=== PATIENT | male | born 1980 | race Caucasian/White ===

== ENCOUNTER 2021-06-11 08:00 | Outpatient (CLI) | payer OTHER ==
--- NOTE | 2021-06-11 12:37 | XRAY Report ---
PROCEDURE: Ankle 3 View RT INDICATIONS: ANKLE PAIN, RIGHT TECHNIQUE: 3 views of the ankle were acquired. COMPARISON: None FINDINGS: Bones: No dislocations. Ankle mortise is normally aligned. No suspicious bony lesions. There is a diagonal fracture best seen on the lateral view, involving the distal diaphysis extending inferiorly across the ankle joint level, with fine bone detail obscured by overlying cast material. Soft tissues: No tibiotalar joint effusion. Achilles tendon appears normal. IMPRESSION: Diagonal minimally displaced fibular fracture extending from the distal diaphysis into t he ankle joint level of the lateral malleolus. Minimal malalignment. Reviewed by: Nate Lyons MD on 06/11/2021 12:36 PM PDT Approved by: Nate Lyons MD on 06/11/2021 12:36 PM PDT Station ID: [id number]
== END 2021-06-11 23:59 | disposition home or self-care (01) ==
LOC: DI.N 08:00
PROVIDERS: ATTEND Orthopaedic Surgery
DX: S82.831A Other fracture of upper and lower end of right fibula, initial encounter for closed fracture (principal)

== ENCOUNTER 2021-06-18 08:00 | Outpatient (CLI) | payer OTHER ==
--- NOTE | 2021-06-18 11:25 | XRAY Report ---
PROCEDURE: Ankle 3 View RT INDICATIONS: NONDISPLACED BIMALLEOLAR FX OF R LOWER LEG TECHNIQUE: 3 weightbearing views of the ankle were acquired. COMPARISON: Ankle radiographs 06/11/2021 FINDINGS: Bones: Minimally displaced oblique fracture of the distal fibula and small minimally displaced fractu re at the tip of the medial malleolus do not appear significant changed when compared to the radiogra phs from 06/11/2021. The alignment is unchanged. Ankle mortise is normally aligned. No suspicious bon y lesions. Soft tissues: Soft tissue edema is seen surrounding the ankle. IMPRESSION: Minimally displaced fractures of the distal fibula and the medial malleolus tip redemons trated with unchanged alignment. Reviewed by: Mayito Luo MD on 06/18/2021 11:24 AM PDT Approved by: Mayito Luo MD on 06/18/2021 11:24 AM PDT Station ID: [id number]
== END 2021-06-18 23:59 | disposition home or self-care (01) ==
LOC: DI.N 08:00
PROVIDERS: ATTEND Orthopaedic Surgery
DX: S82.844A Nondisplaced bimalleolar fracture of right lower leg, initial encounter for closed fracture (principal)

== ENCOUNTER 2021-06-29 08:00 | Outpatient (CLI) | payer OTHER ==
--- NOTE | 2021-06-29 11:47 | XRAY Report ---
PROCEDURE: Ankle 3 View RT INDICATIONS: NONDISPLACED BIMALLEOLAR FX OF R LOWER LEG TECHNIQUE: 3 views of the ankle were acquired. COMPARISON: and 06/11/2021. FINDINGS: Bones: Nondisplaced fracture of the distal fibula is stable in appearance compared 06/18/2021. Minimall y displaced fracture of the tip of the medial malleolus is stable compared 06/18/2021. Ankle mortise is normally aligned. No suspicious bony lesions. Soft tissues: No tibiotalar joint effusion. Achilles tendon appears normal. IMPRESSION: Distal fibula and medial malleolus tip fracture stable compared to 06/18/2021. Reviewed by: Gege Rehman MD, PhD on 06/29/2021 11:46 AM PDT Approved by: Gege Rehman MD, PhD on 06/29/2021 11:46 AM PDT Station ID: [id number]
== END 2021-06-29 23:59 | disposition home or self-care (01) ==
LOC: DI.N 08:00
PROVIDERS: ATTEND Orthopaedic Surgery
DX: S82.844A Nondisplaced bimalleolar fracture of right lower leg, initial encounter for closed fracture (principal)

== ENCOUNTER 2021-07-28 09:45 | Outpatient (CLI) | payer OTHER ==
--- NOTE | 2021-07-28 11:31 | XRAY Report ---
PROCEDURE: Ankle 3 View RT INDICATIONS: NONDISPLACED BIMALLEOLAR FX OF R LOWER LEG TECHNIQUE: 3 views of the ankle were acquired. COMPARISON: X-ray ankle 06/29/2021 FINDINGS: Bones: There is stable alignment of previously identified nondisplaced distal fibular fracture. Simil ar appearance is also noted within the previously noted medial malleoli or tip fracture. Minimal inte rval healing is noted. Ankle mortise is normally aligned. No suspicious bony lesions. Soft tissues: No tibiotalar joint effusion. Achilles tendon appears normal. IMPRESSION: Stable alignment of previously identified distal fibular as well as medial malleoli or f ractures. Reviewed by: Hilary Olmedo MD on 07/28/2021 11:30 AM PDT Approved by: Hilary Olmedo MD on 07/28/2021 11:30 AM PDT Station ID: [id number]
== END 2021-07-28 23:59 | disposition home or self-care (01) ==
LOC: DI.N 09:45
PROVIDERS: ATTEND Orthopaedic Surgery
DX: S82.844D Nondisplaced bimalleolar fracture of right lower leg, subsequent encounter for closed fracture with routine healing (principal)

== ENCOUNTER 2022-03-11 20:15 | Outpatient (CLI) | payer OTHER | END 2022-03-11 20:16 | disposition critical access hospital (66) | LOC: EMS 20:15 | DX: M54.50 Low back pain, unspecified (principal); G89.29 Other chronic pain; M51.9 Unspecified thoracic, thoracolumbar and lumbosacral intervertebral disc disorder | CPT/HCPCS: A0425; A0429 ==

== ENCOUNTER 2022-03-11 20:33 | Emergency (ER) | payer OTHER ==
[2022-03-11] MEDS ORDERED: KETOROLAC 15 MG/ML VIAL IVP STA ×2 (20:48→23:01)
[2022-03-11] MEDS ORDERED: SODIUM CHLORIDE 0.9% 1,000 ML IV STA ×2 (20:48→23:01)
[2022-03-11 21:08] LABS: BASOPHILS % (AUTO) 0.5 %; EOSINOPHILS # (AUTO) 0.2 10^3/uL (0.0-0.7); EOSINOPHILS % (AUTO) 2.8 %; HCT - HEMATOCRIT 37.3 % (42.0-52.0); LYMPHOCYTES # (AUTO) 0.9 10^3/uL (1.5-3.5); LYMPHOCYTES % (AUTO) 10.4 %; MEAN CORPUSCULAR HEMOGLOBIN 28.3 pg (27.0-31.0); MEAN CORPUSCULAR HGB CONC 34.9 g/dL (32.0-36.0); MEAN CORPUSCULAR VOLUME 81.3 fL (80.0-94.0); MEAN PLATELET VOLUME 10.3 fL (7.4-11.4); MONOCYTES # (AUTO) 1.2 10^3/uL (0.0-1.0); MONOCYTES % (AUTO) 14.7 %; NEUTROPHILS # (AUTO) 5.8 10^3/uL (1.5-6.6); NEUTROPHILS % (AUTO) 70.9 %; PLT - PLATELET COUNT 183 10^3/uL (130-450); RED BLOOD COUNT 4.59 10^6/uL (4.70-6.10); RED CELL DISTRIBUTION WIDTH 13.5 % (12.0-15.0); WHITE BLOOD COUNT 8.2 x10^3/uL (4.8-10.8)
--- OUTSIDE RECORDS SUMMARY | 2022-03-11 21:16 | EXTERNAL MEDICAL SUMMARY RPT | Continuity of Care Document ---
:1980 Author Organization [facility] [address] [place] [address] Phone Allergies No information. Encounters No information. Medications No information. Problems date description facility [id number] Low back pain, unspecified [facility] Results No information.
[2022-03-11 21:23] LABS: ALBUMIN 4.4 g/dL (3.2-5.5); ALBUMIN/GLOBULIN RATIO 1.6 (1.0-2.2); BILIRUBIN,TOTAL 0.4 mg/dL (0.2-1.0); CALCIUM 9.2 mg/dL (8.5-10.3); MAGNESIUM 1.7 mg/dL (1.7-2.8); POTASSIUM 3.7 mmol/L (3.5-5.0); TOTAL PROTEIN 7.2 g/dL (6.7-8.2)
--- NOTE | 2022-03-11 21:29 | XRAY Report ---
PROCEDURE: Chest 1 View X-Ray INDICATIONS: Weakness TECHNIQUE: One view of the chest was acquired. COMPARISON: None FINDINGS: Surgical changes and devices: None. Lungs and pleura: No pleural effusions or pneumothorax. Cephalization of pulmonary vessels and incre ased interstitial markings in both lungs. No consolidation. Mediastinum: Mediastinal contours appear normal. Heart size is normal. Bones and chest wall: No suspicious bony lesions. Overlying soft tissues appear unremarkable. IMPRESSION: Cephalization of pulmonary vessels and increased interstitial markings which may be due to technique although mild pulmonary edema could cause a similar appearance. Reviewed by: Ricci Lee MD on 03/11/2022 9:28 PM PDT Approved by: Ricci Lee MD on 03/11/2022 9:28 PM PDT Station ID: [id number]
[2022-03-11] MEDS ORDERED: IOPAMIDOL-300 100 ML VIAL ONE (22:02)
[2022-03-11] MEDS ORDERED: MORPHINE 2 MG/ML CARPUJECT IVP STA (22:19)
[2022-03-11] MEDS ORDERED: IOPAMIDOL-300 100 ML VIAL IVP ONE (22:28)
--- NOTE | 2022-03-11 22:53 | CT Report ---
PROCEDURE: Abdomen/Pelvis W INDICATIONS: lower abd pain/diarrhea CONTRAST: IV CONTRAST: Isovue 300 ml: 100 PO CONTRAST: *NO PO CONTRAST TECHNIQUE: After the administration of IV contrast, 5 mm thick sections acquired from the diaphragms to the symp hysis. 5 mm thick coronal and sagittal reformats were acquired. For radiation dose reduction, the f ollowing was used: automated exposure control, adjustment of mA and/or kV according to patient size. COMPARISON: None. FINDINGS: Image quality: Excellent. ABDOMEN: Lung bases: Gravitational changes at both lung bases. Heart size is normal. Solid organs: The liver is mildly enlarged and moderately diffusely hypodense. No discrete mass. The gallbladder contains 2 peripherally calcified gallstones measuring 2.5 cm in largest diameter and de monstrates a normal wall thickness. Biliary tree is nondilated. The pancreas, spleen, adrenal glands, and kidneys are normal. No hydronephrosis, hydroureter, or urinary calcification. Peritoneum and bowel: Stomach and bowel loops are decompressed. There is minor wall thickening of th e mid sigmoid colon distal to an area of diverticulosis but no significant fat stranding. There are o ccasional diverticula in the proximal sigmoid and distal descending colon without acute surrounding i nflammation. There is normal appendix. Nodes and vessels: No retroperitoneal or mesenteric adenopathy by size criteria. Aorta and inferior vena cava are normal in size. Miscellaneous: No ventral hernias. PELVIS: Genitourinary: Bladder wall thickness is normal. Normal size prostate gland. Miscellaneous: No inguinal hernias or adenopathy. Bones: No suspicious bony lesions. No vertebral body compression fractures. Degenerative disc heig ht loss L5-S1. IMPRESSION: 1. Mild mid sigmoid wall thickening may be a sign of early or mild colitis. This appears to be separa te from areas of mild colonic diverticula. No fat stranding or adjacent fluid. 2. Cholelithiasis. 3. Hepatic steatosis and mild hepatomegaly. Reviewed by: Prisca Cheung MD on 03/11/2022 10:51 PM PDT Approved by: Prisca Cheung MD on 03/11/2022 10:51 PM PDT Station ID: [id number]
[2022-03-11 22:56] VITALS: BP 148/75
[2022-03-11] MEDS ORDERED: diphenhydrAMINE INJ 50 MG/ML VIAL IVP STA (23:01)
[2022-03-11] MEDS ORDERED: METOCLOPRAMIDE 10 MG/2 ML VIAL IVP STA (23:01)
[2022-03-11] MEDS ORDERED: ACETAMINOPHEN 325 MG TABLET PO STA (23:02)
--- NOTE | 2022-03-11 23:25 | ED Physician Documentation ---
History of Present Illness - Stated complaint Stated Complaint: BACK PX/MORENO - Chief complaint Chief Complaint: Back Pain - Additonal information Additional information: Patient is a 41-year-old male with a history significant for migraines and Herniated disc presenting for evaluation of generalized malaise for 3 weeks with associated diarrhea, back pain, headache.Patient reports that his family had GI bug a few weeks ago which he caught. He has been sick for the last 3 weeks with diarrhea Approximately 3-4 episodes per day.Denies blood. Also reports having a frontal throbbing headache which has been persistent for the last 3 days. He does have a history of migraines and this does feel similar but has not improved with usual use of Motrin or Tylenol. He denies bowel or bladder incontinence, saddle anesthesia, and injections to the back, cancer diagnosis. He feels generalized body aches including 2 the back area. He denies recent trauma or injury. He has felt low-grade fevers. He denies dysuria, hematuria.He denies chest pain or difficulty breathing but does report having a dry cough. Review of Systems Constitutional: reports: Fever Nose: denies: Congestion Cardiac: denies: Chest pain / pressure, Palpitations Respiratory: reports: Cough. denies: Dyspnea GI: reports: Nausea, Diarrhea. denies: Abdominal Pain, Vomiting : denies: Dysuria, Hematuria Skin: denies: Rash Musculoskeletal: reports: Back pain. denies: Neck pain Neurologic: reports: Headache. denies: Syncope PD PAST MEDICAL HISTORY - Present Medications Home Medications: Ambulatory Orders Medication Instructions Recorded Confirmed Ciprofloxacin HCl [Cipro] 500 mg PO BID 4 Days #8 tablet 03/11/22 Lidocaine Patch 5% [Lidoderm Patch] 1 patch TOP DAILY PRN #10 patch 03/11/22 Ondansetron Odt [Zofran] 4 mg TL Q6H PRN #10 tablet 03/11/22 Sertraline [Zoloft] 50 mg PO DAILY 03/11/22 03/11/22 Sildenafil Citrate [Sildenafil] 20 mg PO DAILY 03/11/22 03/11/22 buPROPion [Wellbutrin Sr] 150 mg PO BID 03/11/22 03/11/22 - Allergies Allergies/Adverse Reactions: Allergies Allergy/AdvReac Type Severity Reaction Status Date / Time No Known Drug Allergies Allergy Verified 03/11/22 20:44 PD ED PE NORMAL - General General: Alert and oriented X 3, No acute distress, Well developed/nourished - HEENT HEENT: Atraumatic, PERRL, EOMI, Moist mucous membranes, Pharynx benign - Neck Neck: Supple, no meningeal sign - Cardiac Cardiac: No murmur, Strong equal pulses, Other (Tachycardic, regular rhythm) - Respiratory Respiratory: No respiratory distress, Clear bilaterally - Abdomen Abdomen: Normal bowel sounds, Soft, Non distended, Other (Mild generalized abdominal tenderness, no tenderness on deep palpation of the right upper quadrant) - Back Back: No spinal TTP - Derm Derm: Normal color, No rash - Extremities Extremities: No deformity, No edema, Other (Intact distal pulses) - Neuro Neuro: Alert and oriented X 3, 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, No motor deficit, Normal speech Eye Opening: Spontaneous Motor: Obeys Commands Verbal: Oriented GCS Score: 15 - Psych Psych: Normal mood, Normal affect Results - Vitals Vitals: Vital Signs - 24 hr 03/11/22 03/11/22 03/11/22 20:26 20:37 22:35 Temperature 37.8 C Heart Rate 102 H 62 Respiratory 18 17 22 Rate Blood Pressure 163/91 H 148/75 H O2 Saturation 96 99 03/11/22 23:58 Temperature Heart Rate 62 Respiratory 20 Rate Blood Pressure 148/75 H O2 Saturation 99 Oxygen O2 Source Room air - EKG (time done) 2056 Rate: Rate (enter#) (100) Rhythm: Sinus tachycardia [place]: Normal Ischemia: No: ST elevation c/w ischemia - Labs Labs: Laboratory Tests 03/11/22 03/11/22 03/11/22 21:04 21:04 23:00 WBC 8.2 RBC 4.59 L Hgb 13.0 L Hct 37.3 L MCV 81.3 MCH 28.3 MCHC 34.9 RDW 13.5 Plt Count 183 MPV 10.3 Neut # (Auto) 5.8 Lymph # (Auto) 0.9 L [place] # (Auto) 1.2 H Eos # (Auto) 0.2 Baso # (Auto) 0.0 Absolute Nucleated RBC 0.00 Nucleated RBC % 0.0 Sodium 135 Potassium 3.7 Chloride 101 Carbon Dioxide 24 Anion Gap 10.0 BUN 16 Creatinine 1.0 Estimated GFR (MDRD) 83 L Glucose 103 H Calcium 9.2 Magnesium 1.7 Total Bilirubin 0.4 AST 30 ALT 45 Alkaline Phosphatase 52 Total Protein 7.2 Albumin 4.4 Globulin 2.8 Albumin/Globulin Ratio 1.6 Lipase 35 SARS-CoV-2 (PCR) DETECTED A PD MEDICAL DECISION MAKING - ED course Complexity details: reviewed results, re-evaluated patient, d/w patient ED course: Patient presenting for evaluation of headache, back pain, recent diarrhea. He is slightly tachycardic on initial vitalsBut otherwise normotensive and without fever. Labs obtained without significant abnormalities. Patient's neurologic exam is normal and patient does have a history of migraines. Current episode does not seem worse than previous and do not think he needs emergent head CT. No meningismus on exam. Does have mild lower abdominal discomfort and CT abdomen pelvis was obtained with findings of mild colitis. Patient did spike low-grade fever. Was unable to give a stool sample. Due to reports of having diarrhea for the last 3 weeks I was concerned for possible infectious etiology and will start the patient on a short course of p.o. antibiotics. Patient had a COVID swab that was pending at time of discharge. He has young kids at home and he and his needed to get back to relieve their sitter. He was feeling significantly better after IV fluids and migraine cocktail. In regards to his back pain, Exam does not suggest signs of cauda equina or epidural hematoma, abscess.Patient and his are aware of strict return precautions. He is ambulatory at discharge. 1340 - feeling much better, Sitting upright in bed. COVID swab is pending. Reviewed CT and lab results with patient and his . They are eager to get home as they have young children awaiting them. Patient is not able to give a urine sample at this time or a stool sample. After Discharge, COVID swab resulted and is positive. Patient was notified by MARIAM Ibrahim. Departure - Departure Disposition: Home, Self Care Clinical Impression: Low grade fever, Acute exacerbation of chronic low back pain, COVID-19 Headache Qualifiers: Headache type: tension-type Headache chronicity pattern: acute headache Intractability: not intractable Qualified Code(s): G44.209 - Tension-type headache, unspecified, not intractable Diarrhea Qualifiers: Diarrhea type: presumed infectious Qualified Code(s): R19.7 - Diarrhea, unspecified Abdominal pain Qualifiers: Abdominal location: generalized Qualified Code(s): R10.84 - Generalized abdominal pain Condition: Stable Instructions: ED Headache Migraine, ED Abdominal Pain Unkn Cause Male, ED Vomiting Diarrhea Nonspecific Ad Prescriptions: Ciprofloxacin HCl [Cipro] 500 mg PO BID 4 Days #8 tablet Lidocaine Patch 5% [Lidoderm Patch] 1 patch TOP DAILY PRN #10 patch PRN Reason: pain Ondansetron Odt [Zofran] 4 mg TL Q6H PRN #10 tablet PRN Reason: Nausea / Vomiting Comments: Porfirio you were evaluated for multiple concerns today. You had labs done which overall appeared reassuring. Chest x-ray was clear did not show signs of pneumonia. You had a CT scan done of your abdomen and pelvis which showed gallstones but I do not believe this is the cause of your symptoms today. It also showed some mild inflammation in your colon. Because you have a low-grade fever and continued to have diarrhea, I am going to start you on an antibiotic in case there is a bacterial component to this diarrhea as you are not able to give a sample. You additionally had a migraine headache and were given medications to help with this. Please continue to hydrate yourself. I have sent prescriptions for nausea medication as well as lidocaine patches for your chronic back pain. Please also have close follow-up with your primary care doctor. Please return to the emergency department if your symptoms return or if there is any worsening. You have a Covid test pending. You need to self quarantine until the result is done and negative. Do not leave your house. Do not get near anybody. The results should be done in 48 to 72 hours. We will call with a positive result, the fastest way to get a negative result for confirmation though is to go to the hospital website at [email or web address], click on the my [facility] tab and sign up for the patient portal. If any friends or family get sick and would like to have a Covid test done, but do not have signs or symptoms that would necessitate being hospitalized, there are multiple local options for Covid testing. [facility] keeps an updated list of testing and vaccination options at: [email or web address]. Your prescriptions were sent to the [facility] in [place]. Forms: Activity restrictions Discharge Date/Time: 03/12/22 00:01
[2022-03-11] MEDS ORDERED: CIPROFLOXACIN 250 MG TABLET PO STA (23:39)
[2022-03-11] MEDS ORDERED: LIDOCAINE PATCH 5% TOP STA (23:40)
== END 2022-03-12 00:01 | disposition home or self-care (01) ==
LOC: EDUNIT# → ED 20:33
DX: M54.50 Low back pain, unspecified (principal); G89.29 Other chronic pain; G44.209 Tension-type headache, unspecified, not intractable; R19.7 Diarrhea, unspecified; R10.84 Generalized abdominal pain; U07.1 COVID-19
CPT/HCPCS: 36415; 71045; 74177; 80053; 83690; 83735; 85025; 87635; 93005; 96374; 96375; 96376; 99284; 99285; A9270; J1200; J2765; Q9967

== ENCOUNTER 2022-05-03 20:02 | Emergency (ER) | payer OTHER ==
--- NOTE | 2022-05-03 20:36 | ED Physician Documentation ---
History of Present Illness - Stated complaint Stated Complaint: MALE - Chief complaint Chief Complaint: Resp - History obtained from History obtained from: Patient - History of Present Illness Timing: How many weeks ago (3) - Additonal information Additional information: 41-year-old Porfirio Shukla has had a recent COVID experience in February of this year. He resolved that infection and then about 3 weeks ago he began to have a cough again. He has some lumbar disc disease and the cough is bothering his back and is also now developed some vomiting as well as diarrhea over the last 3 days. He has a child in preschool who has brought home some respiratory illness as well. The patient is complaining of some muffled hearing and tinnitus in both ears a sore throat cough diarrhea vomiting and back pain. Review of Systems Constitutional: reports: Fever, Chills, Myalgias, Fatigue, Sweats Eyes: denies: Decreased vision Ears: reports: Loss of hearing, Tinnitus/ringing. denies: Ear pain Nose: reports: Rhinorrhea / runny nose, Congestion Throat: reports: Sore throat Cardiac: denies: Chest pain / pressure, Palpitations Respiratory: reports: Cough. denies: Dyspnea, Wheezing GI: reports: Nausea, Vomiting, Diarrhea. denies: Abdominal Pain : denies: Dysuria, Frequency Skin: denies: Rash Musculoskeletal: denies: Neck pain, Back pain, Extremity pain Neurologic: denies: Generalized weakness, Focal weakness, Numbness PD PAST MEDICAL HISTORY - Present Medications Home Medications: Ambulatory Orders Medication Instructions Recorded Confirmed Sertraline [Zoloft] 50 mg PO DAILY 03/11/22 05/03/22 Sildenafil Citrate [Sildenafil] 50 mg PO DAILY PRN 03/11/22 05/03/22 buPROPion [Wellbutrin Sr] 150 mg PO BID 03/11/22 05/03/22 Azithromycin [Zithromax] 250 mg PO DAILY #6 tablet 05/03/22 Cyclobenzaprine [Flexeril] 10 mg PO Q8HR PRN 05/03/22 05/03/22 traZODone [Desyrel] 50 mg PO HS PRN 05/03/22 05/03/22 - Allergies Allergies/Adverse Reactions: Allergies Allergy/AdvReac Type Severity Reaction Status Date / Time No Known Drug Allergies Allergy Verified 03/11/22 20:44 PD ED PE NORMAL - Vitals Vital signs reviewed: Yes (tachycardic and hypertensive ) - General General: Alert and oriented X 3, No acute distress, Well developed/nourished, Other (flat affect slow moving ) - HEENT HEENT: Atraumatic, PERRL, EOMI, Other (Left TM is normal. right is erythematous in the attic with rounding of the umbo and retraction of the membrane. Pharynx is with 2+ tonsils and minimimal exudate. 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, No motor deficit, No sensory deficit, Normal speech Eye Opening: Spontaneous Motor: Obeys Commands Verbal: Oriented GCS Score: 15 - Psych Psych: Normal mood, Normal affect Results - Vitals Vitals: Vital Signs - 24 hr 05/03/22 05/03/22 20:05 23:00 Temperature 36.4 C L 36.5 C Heart Rate 118 H 101 H Respiratory 20 16 Rate Blood Pressure 152/90 H 133/79 H O2 Saturation 96 97 Oxygen O2 Source Room air - Labs Labs: Laboratory Tests 05/03/22 05/03/22 05/03/22 21:04 21:04 21:04 WBC 10.7 RBC 4.98 Hgb 13.9 L Hct 40.6 L MCV 81.5 MCH 27.9 MCHC 34.2 RDW 13.5 Plt Count 210 MPV 10.5 Neut # (Auto) 7.7 H Lymph # (Auto) 1.3 L [place] # (Auto) 1.2 H Eos # (Auto) 0.4 Baso # (Auto) 0.1 Absolute Nucleated RBC 0.00 Nucleated RBC % 0.0 Sodium 138 Potassium 3.8 Chloride 103 Carbon Dioxide 24 Anion Gap 11.0 BUN 15 Creatinine 1.0 Estimated GFR (MDRD) 83 L Glucose 125 H Lactic Acid 1.7 Calcium 9.5 Total Bilirubin 0.5 AST 32 ALT 49 Alkaline Phosphatase 54 Total Protein 7.9 Albumin 4.6 Globulin 3.3 Albumin/Globulin Ratio 1.4 Lipase 37 Urine Color Urine Clarity Urine pH Ur Specific [place] Urine Protein Urine Glucose (UA) Urine Ketones Urine Occult Blood Urine Nitrite Urine Bilirubin Urine Urobilinogen Ur Leukocyte Esterase Urine RBC Urine WBC Ur Squamous Epith Cells Urine Crystals Urine Bacteria Urine Mucus Ur Microscopic Review Urine Culture Comments Nasal Adenovirus (PCR) Nasal B. parapertussis DNA (PCR) Nasal Coronavir 229E PCR Nasal Coronavir HKU1 PCR Nasal Coronavir NL63 PCR Nasal Coronavir OC43 PCR Nasal Enterovir/Rhinovir PCR Nasal Influenza B PCR Nasal Influenza A PCR Nasal Parainfluen 1 PCR Nasal Parainfluen 2 PCR Nasal Parainfluen 3 PCR Nasal Parainfluen 4 PCR Nasal RSV (PCR) Nasal B.pertussis DNA PCR Nasal C.pneumoniae (PCR) Abran Human Metapneumo PCR Nasal M.pneumoniae (PCR) Nasal SARS-CoV-2 (PCR) Group A Strep Rapid 05/03/22 05/03/22 05/03/22 21:12 21:12 23:05 WBC RBC Hgb Hct MCV MCH MCHC RDW Plt Count MPV Neut # (Auto) Lymph # (Auto) [place] # (Auto) Eos # (Auto) Baso # (Auto) Absolute Nucleated RBC Nucleated RBC % Sodium Potassium Chloride Carbon Dioxide Anion Gap BUN Creatinine Estimated GFR (MDRD) Glucose Lactic Acid Calcium Total Bilirubin AST ALT Alkaline Phosphatase Total Protein Albumin Globulin Albumin/Globulin Ratio Lipase Urine Color YELLOW Urine Clarity CLEAR Urine pH 6.0 Ur Specific [place] 1.025 Urine Protein 30 H Urine Glucose (UA) NEGATIVE Urine Ketones NEGATIVE Urine Occult Blood NEGATIVE Urine Nitrite NEGATIVE Urine Bilirubin NEGATIVE Urine Urobilinogen 0.2 (NORMAL) Ur Leukocyte Esterase NEGATIVE Urine RBC None Seen Urine WBC 0-3 Ur Squamous Epith Cells RARE Squamous Urine Crystals 0-2 Calcium Oxalate Urine Bacteria None Seen Urine Mucus Few Strands Ur Microscopic Review INDICATED Urine Culture Comments NOT INDICATED Nasal Adenovirus (PCR) NOT DETECTED Nasal B. parapertussis DNA (PCR) NOT DETECTED Nasal Coronavir 229E PCR NOT DETECTED Nasal Coronavir HKU1 PCR NOT DETECTED Nasal Coronavir NL63 PCR NOT DETECTED Nasal Coronavir OC43 PCR NOT DETECTED Nasal Enterovir/Rhinovir PCR NOT DETECTED Nasal Influenza B PCR NOT DETECTED Nasal Influenza A PCR NOT DETECTED Nasal Parainfluen 1 PCR NOT DETECTED Nasal Parainfluen 2 PCR NOT DETECTED Nasal Parainfluen 3 PCR DETECTED A Nasal Parainfluen 4 PCR NOT DETECTED Nasal RSV (PCR) NOT DETECTED Nasal B.pertussis DNA PCR NOT DETECTED Nasal C.pneumoniae (PCR) NOT DETECTED Abran Human Metapneumo PCR NOT DETECTED Nasal M.pneumoniae (PCR) NOT DETECTED Nasal SARS-CoV-2 (PCR) NOT DETECTED Group A Strep Rapid Negative - Rads (name of study) chest Radiology: Prelim report reviewed (Impression: Persistent appearance of trace costophrenic angle blunting possibly related to effusions versus scarring with appearance of increased interstitial markings which could be related to mild edema or airspace disease.), EMP read indepedently, See rad report Procedures - IVC sono (time) 2049 Bedside IVC sono: IVC measures (cm) (0.91), IVC collapsed c insp (cm) (complete), Dehydration (est 2 liter deficit) PD MEDICAL DECISION MAKING - ED course Complexity details: reviewed results, re-evaluated patient, considered differential, d/w patient ED course: 41-year-old male appears to be significantly dehydrated on interrogation of the inferior vena cava and has a respiratory illness that has been going on for the past week. He has had a recent bout of COVID and a repeat testing shows parainfluenza virus 3. He is administered dexamethasone and intravenous saline. He feels much improved after the saline. I reviewed the patient's chest x-ray and found it to indicate he likely has an infiltrate. He was administered Rocephin and placed on oral azithromycin. Departure - Departure Disposition: 01 Home, Self Care Clinical Impression: Dehydration, Parainfluenza infection Condition: Stable Instructions: ED Dehydration, ED URI Viral Follow-Up: BARRETT MESA MD [Primary Care Provider] - Prescriptions: Azithromycin [Zithromax] 250 mg PO DAILY #6 tablet Comments: Porfirio today it looks like you have parainfluenza virus which is the virus that causes croup in children. This usually has some coarsening to the voice a sore throat and a cough for adults. This should self resolve and hydration is important. There is evidence of infection on the x-ray of your chest and we are providing and antibiotic for treatment of pneumonia. There is a script for zithromax which you should start tomorrow when you pick it up at the pharmacy. It has been e-scribed to the [facility] in [place]. Discharge Date/Time: 05/04/22 00:05
[2022-05-03] MEDS ORDERED: KETOROLAC 30 MG/ML VIAL IVP STA (20:54)
[2022-05-03] MEDS ORDERED: SODIUM CHLORIDE 0.9% 1,000 ML IV STA ×2 (20:54→21:53)
[2022-05-03] MEDS ORDERED: DEXAMETHASONE 10 MG/ML VIAL IVP STA (20:55)
[2022-05-03 21:10] LABS: BASOPHILS # (AUTO) 0.1 10^3/uL (0.0-0.1); BASOPHILS % (AUTO) 0.5 %; EOSINOPHILS # (AUTO) 0.4 10^3/uL (0.0-0.7); EOSINOPHILS % (AUTO) 3.8 %; HCT - HEMATOCRIT 40.6 % (42.0-52.0); HGB - HEMOGLOBIN 13.9 g/dL (14.0-18.0); LYMPHOCYTES # (AUTO) 1.3 10^3/uL (1.5-3.5); LYMPHOCYTES % (AUTO) 12.6 %; MEAN CORPUSCULAR HEMOGLOBIN 27.9 pg (27.0-31.0); MEAN CORPUSCULAR HGB CONC 34.2 g/dL (32.0-36.0); MEAN CORPUSCULAR VOLUME 81.5 fL (80.0-94.0); MEAN PLATELET VOLUME 10.5 fL (7.4-11.4); MONOCYTES # (AUTO) 1.2 10^3/uL (0.0-1.0); MONOCYTES % (AUTO) 11.1 %; NEUTROPHILS # (AUTO) 7.7 10^3/uL (1.5-6.6); NEUTROPHILS % (AUTO) 71.7 %; PLT - PLATELET COUNT 210 10^3/uL (130-450); RED BLOOD COUNT 4.98 10^6/uL (4.70-6.10); RED CELL DISTRIBUTION WIDTH 13.5 % (12.0-15.0); WHITE BLOOD COUNT 10.7 x10^3/uL (4.8-10.8)
[2022-05-03 21:24] LABS: ALBUMIN 4.6 g/dL (3.2-5.5); ALBUMIN/GLOBULIN RATIO 1.4 (1.0-2.2); BILIRUBIN,TOTAL 0.5 mg/dL (0.2-1.0); CALCIUM 9.5 mg/dL (8.5-10.3); POTASSIUM 3.8 mmol/L (3.5-5.0); TOTAL PROTEIN 7.9 g/dL (6.7-8.2)
--- NOTE | 2022-05-03 21:30 | XRAY Report ---
PROCEDURE: Chest 1 View X-Ray INDICATIONS: chest pain TECHNIQUE: One view of the chest was acquired. COMPARISON: Chest x-ray 03/11/2022 FINDINGS: Surgical changes and devices: None. Lungs and pleura: Persistent appearance of costophrenic angle blunting and slight interstitial promin ence. Mediastinum: Mediastinal contours appear normal. Heart size appears prominent. Bones and chest wall: No suspicious bony lesions. Overlying soft tissues appear unremarkable. IMPRESSION: Persistent appearance of trace costophrenic angle blunting possibly related to effusions versus scarr ing with appearance of increased interstitial markings which could be related to mild edema or airspa ce disease. Reviewed by: Hilary Olmedo MD on 05/03/2022 9:28 PM PDT Approved by: Hilary Olmedo MD on 05/03/2022 9:28 PM PDT Station ID: [id number]
[2022-05-03 21:34] LABS: RAPID STREP SCREEN Negative (Negative)
[2022-05-03 22:11] LABS: CORONAVIRUS 229E-RESP PCR NOT DETECTED; CORONAVIRUS HKU1-RESP PCR NOT DETECTED; CORONAVIRUS NL63-RESP PCR NOT DETECTED; CORONAVIRUS OC43-RESP PCR NOT DETECTED; HUMAN METAPNEUMOVIRUS NOT DETECTED; INFLUENZA A- RESP PCR PANEL NOT DETECTED; INFLUENZA B - RESP PCR PANEL NOT DETECTED; PARAINFLUENZA VIRUS 1 NOT DETECTED; PARAINFLUENZA VIRUS 2 NOT DETECTED; PARAINFLUENZA VIRUS 3 DETECTED; RHINOVIRUS/ENTEROVIRUS NOT DETECTED; SARS-CoV-2 -RESP PCR PANEL NOT DETECTED
[2022-05-03 22:12] LABS: B. PARAPERTUSSIS- RESP PCR PAN NOT DETECTED; B. PERTUSSIS- RESP PCR PANEL NOT DETECTED; C. PNEUMONIAE- RESP PCR PANEL NOT DETECTED; M. PNEUMONIAE- RESP PCR PANEL NOT DETECTED; PARAINFLUENZA VIRUS 4 NOT DETECTED; RSV- RESP PCR PANEL NOT DETECTED
[2022-05-03 23:01] VITALS: BP 133/79
[2022-05-03] MEDS ORDERED: cefTRIAXone 1 GM VIAL IVP STA (23:10)
[2022-05-03 23:23] LABS: BILIRUBIN,URINE NEGATIVE (NEGATIVE); GLUCOSE, URINE (UA) NEGATIVE (NEGATIVE); KETONES,URINE (UA) NEGATIVE (NEGATIVE); LEUKOCYTE ESTERASE, URINE NEGATIVE (NEGATIVE); NITRITE,URINE NEGATIVE (NEGATIVE); OCCULT BLOOD,URINE NEGATIVE (NEGATIVE); PROTEIN,URINE 30 mg/dL (NEGATIVE); UROBILINOGEN,URINE 0.2 (NORMAL) E.U./dL (NORMAL)
[2022-05-03 23:24] LABS: CLARITY,URINE CLEAR (CLEAR)
[2022-05-03 23:33] LABS: BACTERIA,URINE None Seen /HPF (None Seen); CRYSTALS,URINE 0-2 Calcium Oxalate /LPF; MUCUS,URINE Few Strands; RBC,URINE None Seen /HPF (0-5); SQUAMOUS EPITHELIAL CELL,UR RARE Squamous (<= Few); WBC,URINE 0-3 /HPF (0-3)
== END 2022-05-04 00:05 | disposition home or self-care (01) ==
LOC: ED 20:02
DX: E86.0 Dehydration (principal); B34.8 Other viral infections of unspecified site; Z20.822 Contact with and (suspected) exposure to COVID-19
CPT/HCPCS: 36415; 80053; 81001; 81003; 83605; 83690; 85025; 87070; 87086; 87430; 87633; 96361; 96374; 96375; 99283

== ENCOUNTER 2022-09-05 17:40 | Emergency (ER) | payer OTHER ==
--- NOTE | 2022-09-05 18:22 | ED Physician Documentation ---
History of Present Illness - Stated complaint Stated Complaint: FEVER,VOMITTING,LETHARGIC - Chief complaint Chief Complaint: General - History obtained from History obtained from: Patient - History of Present Illness Timing: How many weeks ago (2) Pain level max: 0 Pain level now: 0 - Additonal information Additional information: Patient is a 41-year-old male who presents to the emergency department complaining of cough and congestion for the past 2 weeks. Entire family has been sick with same. Nothing makes it better or worse. Patient recently had pneumonia and is concerned that the pneumonia has returned Review of Systems Constitutional: reports: Fever, Chills Nose: reports: Rhinorrhea / runny nose, Congestion Respiratory: reports: Cough. denies: Dyspnea, Wheezing GI: reports: Nausea. denies: Vomiting, Diarrhea Skin: denies: Rash Musculoskeletal: denies: Neck pain, Back pain Neurologic: denies: Headache PD PAST MEDICAL HISTORY - Past Medical History Past Medical History: Yes Cardiovascular: Hypertension, High cholesterol Respiratory: Sleep apnea, CPAP use Neuro: None Endocrine/Autoimmune: None GI: Chronic diarrhea : None HEENT: Chronic vision loss Psych: Depression, Anxiety Musculoskeletal: Chronic back pain Derm: None - Past Surgical History Past Surgical History: Yes General: Cholecystectomy, Colonoscopy - Present Medications Home Medications: Ambulatory Orders Medication Instructions Recorded Confirmed Sertraline [Zoloft] 200 mg PO DAILY 03/11/22 09/05/22 Sildenafil Citrate [Sildenafil] 50 mg PO DAILY PRN 03/11/22 09/05/22 buPROPion [Wellbutrin Sr] 150 mg PO DAILY 03/11/22 09/05/22 traZODone [Desyrel] 50 mg PO HS PRN 05/03/22 09/05/22 Lisinopril [Zestril] 20 mg PO DAILY 06/29/22 09/05/22 Cholestyramine (with Sugar) 348.6 gm PO QID PRN #1 gm 08/24/22 09/05/22 [Cholestyramine Powder] Gabapentin [Neurontin] 300 mg PO HS 09/05/22 09/05/22 - Allergies Allergies/Adverse Reactions: Allergies Allergy/AdvReac Type Severity Reaction Status Date / Time No Known Drug Allergies Allergy Verified 09/05/22 17:54 - Social History Does the pt smoke?: No Smoking Status: Never smoker Does the pt drink ETOH?: No Does the pt have substance abuse?: No - Immunizations Immunizations are current?: Yes PD ED PE NORMAL - Vitals Vital signs reviewed: Yes - General General: Alert and oriented X 3, No acute distress - HEENT HEENT: PERRL, Ears normal, Moist mucous membranes, Pharynx benign - Neck Neck: Supple, no meningeal sign - Cardiac Cardiac: RRR, Strong equal pulses - Respiratory Respiratory: No respiratory distress, Clear bilaterally - Abdomen Abdomen: Soft, Non tender, Non distended - Derm Derm: Warm and dry, No rash - Neuro Neuro: Alert and oriented X 3 - Psych Psych: Normal mood, Normal affect Results - Vitals Vitals: Vital Signs - 24 hr 09/05/22 09/05/22 17:56 19:52 Temperature 36.8 C 36.5 C Heart Rate 87 86 Respiratory 18 16 Rate Blood Pressure 140/88 H 128/88 H O2 Saturation 96 98 Oxygen O2 Source Room air - Labs Labs: Laboratory Tests 09/05/22 18:26 Nasal Adenovirus (PCR) NOT DETECTED Nasal B. parapertussis DNA (PCR) NOT DETECTED Nasal Coronavir 229E PCR NOT DETECTED Nasal Coronavir HKU1 PCR NOT DETECTED Nasal Coronavir NL63 PCR NOT DETECTED Nasal Coronavir OC43 PCR NOT DETECTED Nasal Enterovir/Rhinovir PCR NOT DETECTED Nasal Influenza B PCR NOT DETECTED Nasal Influenza A PCR NOT DETECTED Nasal Parainfluen 1 PCR NOT DETECTED Nasal Parainfluen 2 PCR NOT DETECTED Nasal Parainfluen 3 PCR NOT DETECTED Nasal Parainfluen 4 PCR NOT DETECTED Nasal RSV (PCR) NOT DETECTED Nasal B.pertussis DNA PCR NOT DETECTED Nasal C.pneumoniae (PCR) NOT DETECTED Abran Human Metapneumo PCR NOT DETECTED Nasal M.pneumoniae (PCR) NOT DETECTED Nasal SARS-CoV-2 (PCR) NOT DETECTED - Rads (name of study) cxr Radiology: Final report received, EMP read contemporaneously, See rad report (No acute abnormality) PD MEDICAL DECISION MAKING - ED course Complexity details: reviewed results, re-evaluated patient, considered differential, d/w patient, d/w family ED course: Patient is well-appearing, nontoxic. Afebrile. No hypoxia. No respiratory distress. Chest x-ray does not show any signs of pneumonia. We will continue supportive care and have him follow-up with his PCP for further care. Patient counseled regarding signs and symptoms for which I believe and urgent re- evaluation would be necessary. Patient with good understanding of and agreement to plan and is comfortable going home at this time This document was made in part using voice recognition software. While efforts are made to proofread this document, sound alike and grammatical errors may occur. Departure - Departure Disposition: 01 Home, Self Care Clinical Impression: Viral URI with cough Condition: Good Instructions: ED Viral Syndrome Follow-Up: BARRETT MESA MD [Primary Care Provider] - Within 1 week Comments: Thankfully there is no pneumonia on your chest x-ray tonight. Please continue to drink plenty of fluids at home and rest. Please return if you worsen. Forms: Activity restrictions Discharge Date/Time: 09/05/22 19:52
--- NOTE | 2022-09-05 19:01 | XRAY Report ---
PROCEDURE: Chest 2 View X-Ray INDICATIONS: cough TECHNIQUE: 2 view(s) of the chest. COMPARISON: 05/03/2022. FINDINGS: Surgical changes and devices: None. Lungs and pleura: No pleural effusions or pneumothorax. Lungs are clear. Mediastinum: Mediastinal contours are normal. Heart size is normal. Bones and chest wall: No suspicious bony abnormalities. Soft tissues appear unremarkable. IMPRESSION: No evidence acute pulmonary process. Reviewed by: Abe Knight MD on 09/05/2022 7:00 PM PDT Approved by: Abe Knight MD on 09/05/2022 7:00 PM PDT Station ID: [id number]
[2022-09-05 19:46] LABS: B. PARAPERTUSSIS- RESP PCR PAN NOT DETECTED; B. PERTUSSIS- RESP PCR PANEL NOT DETECTED; C. PNEUMONIAE- RESP PCR PANEL NOT DETECTED; CORONAVIRUS 229E-RESP PCR NOT DETECTED; CORONAVIRUS HKU1-RESP PCR NOT DETECTED; CORONAVIRUS NL63-RESP PCR NOT DETECTED; CORONAVIRUS OC43-RESP PCR NOT DETECTED; HUMAN METAPNEUMOVIRUS NOT DETECTED; INFLUENZA A- RESP PCR PANEL NOT DETECTED; INFLUENZA B - RESP PCR PANEL NOT DETECTED; M. PNEUMONIAE- RESP PCR PANEL NOT DETECTED; PARAINFLUENZA VIRUS 1 NOT DETECTED; PARAINFLUENZA VIRUS 2 NOT DETECTED; PARAINFLUENZA VIRUS 3 NOT DETECTED; PARAINFLUENZA VIRUS 4 NOT DETECTED; RHINOVIRUS/ENTEROVIRUS NOT DETECTED; RSV- RESP PCR PANEL NOT DETECTED; SARS-CoV-2 -RESP PCR PANEL NOT DETECTED
[2022-09-05 19:53] VITALS: BP 128/88
== END 2022-09-05 19:52 | disposition home or self-care (01) ==
LOC: ED 17:40
DX: J06.9 Acute upper respiratory infection, unspecified (principal); I10 Essential (primary) hypertension; Z20.822 Contact with and (suspected) exposure to COVID-19
CPT/HCPCS: 87633; 99282; 99284

== ENCOUNTER 2022-12-21 14:40 | Outpatient (CLI) | payer OTHER | END 2022-12-21 14:41 | disposition home or self-care (01) | LOC: DI 14:40 | PROVIDERS: ATTEND Physician Assistant | DX: R42 Dizziness and giddiness (principal) | CPT/HCPCS: 93306 ==

== ENCOUNTER 2023-04-26 19:19 | Emergency (ER) | payer OTHER ==
[2023-04-26] MEDS ORDERED: DEXAMETHASONE 10 MG/ML VIAL PO STA (19:58)
[2023-04-26] MEDS ORDERED: CHERRY SYRUP 10 ML UDC PO ONE (19:58)
[2023-04-26 20:02] LABS: RAPID STREP SCREEN Negative (Negative)
[2023-04-26 20:19] VITALS: BP 154/88
--- NOTE | 2023-04-26 20:25 | ED Physician Documentation ---
History of Present Illness - Stated complaint Stated Complaint: THROAT PX/COUGH - Chief complaint Chief Complaint: Heent - Additonal information Additional information: 42-year-old male presents emergency department for evaluation of a sore throat that began 3 days ago. He does have some cough but no congestion. No fevers. Reports he feels like he is swallowing glass. He is concerned because of body of his had strep throat recently. He also reports that his and daughter at home are immune compromised. Review of Systems Constitutional: denies: Fever Throat: reports: Sore throat. denies: Dental pain / toothache, Oral lesions / sores, Swollen tonsils PD PAST MEDICAL HISTORY - Past Medical History Cardiovascular: Hypertension, High cholesterol Respiratory: Sleep apnea, CPAP use Neuro: None Endocrine/Autoimmune: None GI: Chronic diarrhea : None HEENT: Chronic vision loss Psych: Depression, Anxiety Musculoskeletal: Chronic back pain Derm: None - Past Surgical History Past Surgical History: Yes General: Cholecystectomy, Colonoscopy - Present Medications Home Medications: Ambulatory Orders Medication Instructions Recorded Confirmed Sertraline [Zoloft] 200 mg PO DAILY 03/11/22 04/26/23 Sildenafil Citrate [Sildenafil] 50 mg PO DAILY PRN 03/11/22 04/26/23 buPROPion [Wellbutrin Sr] 150 mg PO DAILY 03/11/22 04/26/23 traZODone [Desyrel] 50 mg PO HS PRN 05/03/22 04/26/23 Lisinopril [Zestril] 20 mg PO DAILY 06/29/22 04/26/23 Cholestyramine (with Sugar) 348.6 gm PO QID PRN #1 gm 08/24/22 04/26/23 [Cholestyramine Powder] Gabapentin [Neurontin] 300 mg PO HS 09/05/22 04/26/23 - Allergies Allergies/Adverse Reactions: Allergies Allergy/AdvReac Type Severity Reaction Status Date / Time No Known Drug Allergies Allergy Verified 09/05/22 17:54 - Social History Does the pt smoke?: No Smoking Status: Never smoker Does the pt drink ETOH?: No Does the pt have substance abuse?: No - Immunizations Immunizations are current?: Yes PD ED PE NORMAL - General General: Alert and oriented X 3, No acute distress, Well developed/nourished - HEENT HEENT: Atraumatic, Moist mucous membranes. No: Pharynx benign (Mild posterior oropharynx erythema without exudate. Uvula is midline. No soft palate asymmetry or swelling. Normal phonation. Normal swallow. No tender anterior cervical lymphadenopathy) - Neck Neck: Supple, no meningeal sign, No adenopathy - Cardiac Cardiac: RRR, No murmur Results - Vitals Vitals: Vital Signs - 24 hr 04/26/23 04/26/23 19:23 20:14 Temperature 36.6 C Heart Rate 111 H 99 Respiratory 20 18 Rate Blood Pressure 164/89 H 154/88 H O2 Saturation 95 98 Oxygen O2 Source Room air - Labs Labs: Laboratory Tests 04/26/23 19:33 Group A Strep Rapid Negative PD Medical Decision Making - ED course Complexity details: reviewed results, considered differential, d/w patient ED course: 42-year-old male presents emergency department for evaluation of 3 days sore throat. On exam he has a very benign appearing posterior oropharynx without exudate or significant erythema. 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 Rapid strep is obtained at the bedside today was negative. I discussed with the patient likely other etiologies that could include viral or allergies. He was given a single dose of 10 mg Decadron orally. We will defer antibiotics unless the culture becomes positive. Patient was comfortable with this plan. He is discharged home in stable condition with usual emergent return precautions discussed. Departure - Departure Disposition: 01 Home, Self Care Clinical Impression: Sore throat Condition: Stable Record reviewed to determine appropriate education?: Yes Comments: Porfirio we did do a rapid strep swab of your throat today and it was negative. I would like to defer giving antibiotics unless the culture is positive. We will notify you within the next 48 hours if it is. In general viruses or even seasonal allergies can cause sore throats. I recommend you take 600 mg of Motrin with food 2-3 times a day. Gargling with warm salt water can also be effective. We did give you a single dose of Decadron 10 mg orally here in the emergency department. This will help with pain and inflammation significantly over the next 48 to 72 hours. Return to the ER if you find that you are having worsening symptoms, high fevers, cannot swallow normally or tolerate your oral secretions.
--- NOTE | 2023-04-28 11:36 | ED Physician Documentation ---
ED Addendum - Addendum Addendum: 04/28/23 11:36 Strep culture positive for group B strep. I called the patient's. He says he is getting better albeit not quite resolved. I sent a prescription for penicillin VK 500 mg p.o. 4 times daily #40 to [facility] in [place] but discussed with him that he could do a watch and wait approach or fill it immediately.
== END 2023-04-26 20:31 | disposition home or self-care (01) ==
LOC: ED 19:19
DX: J02.0 Streptococcal pharyngitis (principal); B95.1 Streptococcus, group B, as the cause of diseases classified elsewhere; I10 Essential (primary) hypertension; E78.00 Pure hypercholesterolemia, unspecified; Z79.899 Other long term (current) drug therapy
CPT/HCPCS: 87070; 87430; 99283; A9270